=== PATIENT | male | born 1995 | race Caucasian/White ===

== ENCOUNTER 2016-08-23 14:48 | Emergency (ER) | payer OTHER ==
[~2016-08-23 14:48] MED LIST: ABILIFY15 MG PO; ABILIFY20 MG PO; ADDERALL20 MG PO; BIAXIN500 MG PO; CEPHALEXIN500 M1 PO; CLARITIN10 MG PO; GUAIFENESIN600 MG PO; MOTRIN400 MG PO; MOTRIN800 MG PO
[2016-08-23] MEDS ORDERED: Motrin,Rufen800 MG PO (16:48)
[2016-08-23] MEDS ORDERED: ROBAXIN500 M1 PO (16:48)
== END 2016-08-23 16:50 | disposition home or self-care (01) ==
LOC: ED 14:48
DX: S16.1XXA Strain of muscle, fascia and tendon at neck level, initial encounter (principal); F17.200 Nicotine dependence, unspecified, uncomplicated; V89.2XXA Person injured in unspecified motor-vehicle accident, traffic, initial encounter; Y93.89 Activity, other specified; Y92.413 State road as the place of occurrence of the external cause; Y99.9 Unspecified external cause status

== ENCOUNTER 2017-03-03 09:22 | Emergency (ER) | payer SELFPAY ==
[~2017-03-03] VITALS: Ht 185.4 cm; Wt 104.3 kg
[~2017-03-03 09:22] MED LIST changes: +Motrin,Rufen800 MG PO; +ROBAXIN500 M1 PO
== END 2017-03-03 11:12 | disposition home or self-care (01) ==
LOC: ED 09:22
DX: H16.133 Photokeratitis, bilateral (principal); S05.8X2A Other injuries of left eye and orbit, initial encounter; S05.8X1A Other injuries of right eye and orbit, initial encounter; F17.200 Nicotine dependence, unspecified, uncomplicated; F10.10 Alcohol abuse, uncomplicated; W89.8XXA Exposure to other man-made visible and ultraviolet light, initial encounter; Y93.89 Activity, other specified; Y92.89 Other specified places as the place of occurrence of the external cause; Y99.8 Other external cause status

== ENCOUNTER 2018-07-12 20:07 | Emergency (ER) | payer OTHER ==
[~2018-07-12] VITALS: Ht 187.9 cm; Wt 99.8 kg
== END 2018-07-12 22:23 | disposition home or self-care (01) ==
LOC: ED 20:07
DX: S62.396A Other fracture of fifth metacarpal bone, right hand, initial encounter for closed fracture (principal); W22.01XA Walked into wall, initial encounter; Y93.89 Activity, other specified; Y92.89 Other specified places as the place of occurrence of the external cause; Y99.9 Unspecified external cause status